=== PATIENT | female | born 2000 | race Native Hawaiian/Other Pacific Islander ===

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

== ENCOUNTER 2021-04-04 09:09 | Outpatient (CLI) | payer BC | END 2021-04-04 15:13 | disposition home or self-care (01) | LOC: LABW 09:09 | PROVIDERS: ATTEND Nurse Practitioner | DX: R19.7 Diarrhea, unspecified (principal) | CPT/HCPCS: 82272; 83630; 87015; 87045; 87324; 87328; 87329; 87338; 87449; 87899 ==